=== PATIENT | female | born 1955 | race Caucasian/White ===

== ENCOUNTER 2020-11-27 07:31 | Day surgery (SDC) | payer MEDICARE, MEDICAID ==
[2020-11-19 14:29] LABS: BASOPHILS # (AUTO) 0.1 X10'3 (0-0.2); BASOPHILS % (AUTO) 1.1 % (0-1); EOSINOPHILS # (AUTO) 0.4 X10'3 (0-0.9); EOSINOPHILS % (AUTO) 6.1 % (0-6); LYMPHOCYTES # (AUTO) 1.8 X10'3 (1.1-4.8); LYMPHOCYTES % (AUTO) 30.3 % (21-51); MEAN CORPUSCULAR HEMOGLOBIN 28.1 PG (27.0-31.0); MEAN CORPUSCULAR HGB CONC 32.1 g/dL (33.0-36.5); MEAN CORPUSCULAR VOLUME 87.6 FL (78-98); MONOCYTES # (AUTO) 0.4 X10'3 (0-0.9); MONOCYTES % (AUTO) 7.6 % (2-12); NEUTROPHILS # (AUTO) 3.2 X10'3 (1.8-7.7); NEUTROPHILS % (AUTO) 54.9 % (42-75); PRE OP HEMATOCRIT 42.4 % (35.0-45.0); PRE OP HEMOGLOBIN 13.6 g/dL (12.0-16.0); PRE OP PLATELET COUNT 369 X10'3 (140-440); RED BLOOD COUNT 4.84 X10'6 (4.20-5.60); RED CELL DISTRIBUTION WIDTH 14.7 % (11.5-14.5)
[2020-11-19 14:51] LABS: ALBUMIN 3.6 G/DL (3.4-5.0); ALBUMIN/GLOBULIN RATIO 0.9 (1.1-1.5); ALKALINE PHOSPHATASE 95 IU/L (46-116); BLOOD UREA NITROGEN 35 MG/DL (7-18); BUN/CREATININE RATIO 23.6 (6.6-38.0); CALCIUM 9.1 MG/DL (8.5-10.1); CHLORIDE 108 MMOL/L (99-107); CREATININE 1.48 MG/DL (0.40-0.90); PRE OP ALT 21 U/L (30-65); PRE OP ANION GAP 12 (8-16); PRE OP AST 17 U/L (10-37); PRE OP BILIRUB, TOTAL 0.3 MG/DL (0.0-1.0); PRE OP GLUCOSE 100 MG/DL (70-104); PRE OP SODIUM 146 MMOL/L (135-145); TOTAL PROTEIN 7.6 G/DL (6.4-8.2); eGFR 36 ML/MIN
[2020-11-27] VITALS (13 sets, daily range): BP systolic 121–147; BP diastolic 68–83
[~2020-11-27] VITALS: Ht 167.6 cm; Wt 109.7 kg
[~2020-11-27 07:31] MED LIST: AMLO10TA13 PO; ASCO-134 PO; BACL10TA2 PO; BUPIVAcaine/PF 2.5mg/ml (0.25%) 10ml vial ONE; CHOL10006 PO; DICY10CA18 PO; DOCUMENT DATE & TIME OF BETA-BLOCKER PO ONE; FURO20TA4 PO; HYDR25TA4 PO; IRON15TA3 PO; LEVO50TA8 PO; LIRA0.6P2 SQ; MAGN300C PO; MELA10TA PO; METF-438 PO; METO100T14 PO; OMEP40CA21 PO; POTA20TA19 PO; PRAS25CA PO; VALS320T17 PO; cefazolin/dext.iso 2gm/100ml IV ONE; famotidine 20mg tablet PO ONE; ringers solution, lacted 1,000 ML IV SCH; triamcinolone acetonide 40mg/ml inj ONE; vancomycin 1,500 MG in NS 300ml IV soln IV ONE
[2020-11-27] MEDS ORDERED: sevoflurane 250ml liquid IH ONE (10:12)
[2020-11-27] MEDS ORDERED: midazolam 1 mg/ML 2ml injection ONE (10:23)
[2020-11-27] MEDS ORDERED: fentaNYL/PF 50MCG/1 ML 2ML syringe ONE (10:23)
[2020-11-27] MEDS ORDERED: ondansetron/PF 4mg/2ml inj ONE (10:30)
[2020-11-27] MEDS ORDERED: propofol inj 20 ML IV ONE (10:30)
[2020-11-27] MEDS ORDERED: LIDOcaine 2% (20mg/ml) 5ml vial ONE (10:30)
[2020-11-27] MEDS ORDERED: dexamethasone sod phosphate 4mg/ml inj. ONE (10:30)
[2020-11-27] MEDS ORDERED: meperidine/PF 25mg/ml syringe ONE (10:41)
[2020-11-27] MEDS ORDERED: meperidine/PF 25mg/ml syringe IV PRN ×3 (11:05)
[2020-11-27] MEDS ORDERED: ringers solution, lacted 1,000 ML IV SCH (11:05)
[2020-11-27] MEDS ORDERED: morphine 4 MG/ML inj SYRINge IV PRN (11:05)
[2020-11-27] MEDS ORDERED: morphine 2 MG/ML inj. syringe IV PRN (11:05)
[2020-11-27] MEDS ORDERED: ondansetron/PF 4mg/2ml inj IV PRN (11:05)
[2020-11-27] MEDS ORDERED: proCHLORperazine 10 MG/2 ml inj IV PRN (11:05)
[2020-11-27] MEDS ORDERED: acetaminophen 1,000mg/100ml IV 100 ML IV ONE (11:14)
--- NOTE | 2020-11-27 11:27 | NUR ---
Received from OR via [facility] , accompanied by Anesthesiologist VANDANA and report given by Anesthesiolgist. PATIENT WITH 20G PIV IN RIGHT UE RUNNING LR AT 100. BANDAGE TO LEFT KNEE IS CDI. NO DRAINAGE TO DRESSING. Addendum: 11/27/20 at 1133 by Kenroy Huddleston RN, RN Amended: Links added.
[2020-11-27] MEDS ORDERED: HYDROcodone/acetaminophen 10/325mg tab PO ONE (13:05)
--- NOTE | 2020-11-27 13:37 | NUR ---
ALL DC CRITERIA HAS BEEN MET. ALL INSTRUCTIONS GIVEN AND UNDERSTOOD. OUT VIA WHEELCHAIR AND TAKEN OUT TO PERSONAL VEHICLE WHERE FAMILY DROVE PATIENT HOME. Addendum: 11/27/20 at 1349 by Kenroy Huddleston RN, RN Amended: Links added.
== END 2020-11-27 13:37 | disposition home or self-care (01) ==
LOC: PAS 07:31
PROVIDERS: ATTEND Orthopaedic Surgery
DX: S83.242A Other tear of medial meniscus, current injury, left knee, initial encounter (principal); S83.272A Complex tear of lateral meniscus, current injury, left knee, initial encounter; M94.262 Chondromalacia, left knee; M17.12 Unilateral primary osteoarthritis, left knee; G89.4 Chronic pain syndrome; I10 Essential (primary) hypertension; K21.9 Gastro-esophageal reflux disease without esophagitis; E78.5 Hyperlipidemia, unspecified; E11.51 Type 2 diabetes mellitus with diabetic peripheral angiopathy without gangrene; M17.0 Bilateral primary osteoarthritis of knee; G47.30 Sleep apnea, unspecified; J45.909 Unspecified asthma, uncomplicated; E66.01 Morbid (severe) obesity due to excess calories; Z68.39 Body mass index [BMI] 39.0-39.9, adult; Z20.822 Contact with and (suspected) exposure to COVID-19; Z79.899 Other long term (current) drug therapy; Z79.4 Long term (current) use of insulin; Z98.41 Cataract extraction status, right eye; Z98.42 Cataract extraction status, left eye; Z72.89 Other problems related to lifestyle; Z98.890 Other specified postprocedural states; Z86.718 Personal history of other venous thrombosis and embolism; Z87.442 Personal history of urinary calculi; Z88.8 Allergy status to other drugs, medicaments and biological substances; Z80.9 Family history of malignant neoplasm, unspecified; X58.XXXA Exposure to other specified factors, initial encounter; Y93.89 Activity, other specified; Y92.89 Other specified places as the place of occurrence of the external cause; Y99.8 Other external cause status
CPT/HCPCS: 29873; 29879; 29880; 36415; 80053; 82948; 85025; J0131; J1100; J2001; J2175; J2250; J2270; J2405; J2704; J3010; J3301; J3370; J3490; J7040; U0003; U0005; Z7506; Z7508; Z7512; A4215; A4618; A6250; A6449; A7000; J7120

== ENCOUNTER 2021-10-27 05:36 | Inpatient (IN) | payer OTHER ==
[2021-10-21 14:59] LABS: BASOPHILS % (AUTO) 0.8 % (0-1); EOSINOPHILS # (AUTO) 0.3 X10'3 (0-0.9); EOSINOPHILS % (AUTO) 5.5 % (0-6); LYMPHOCYTES # (AUTO) 1.3 X10'3 (1.1-4.8); LYMPHOCYTES % (AUTO) 23.6 % (21-51); MEAN CORPUSCULAR HEMOGLOBIN 28.7 PG (27.0-31.0); MEAN CORPUSCULAR HGB CONC 32.8 g/dL (33.0-36.5); MEAN CORPUSCULAR VOLUME 87.3 FL (78-98); MEAN PLATELET VOLUME 7.9 FL (7.4-10.4); MONOCYTES # (AUTO) 0.3 X10'3 (0-0.9); MONOCYTES % (AUTO) 5.4 % (2-12); NEUTROPHILS # (AUTO) 3.5 X10'3 (1.8-7.7); NEUTROPHILS % (AUTO) 64.7 % (42-75); PRE OP HEMATOCRIT 42.1 % (35.0-45.0); PRE OP HEMOGLOBIN 13.8 g/dL (12.0-16.0); PRE OP PLATELET COUNT 307 X10'3 (140-440); RED BLOOD COUNT 4.82 X10'6 (4.20-5.60)
[2021-10-21 15:17] LABS: ALBUMIN 3.8 G/DL (3.4-5.0); ALBUMIN/GLOBULIN RATIO 0.9 (1.1-1.5); ALKALINE PHOSPHATASE 97 IU/L (46-116); BLOOD UREA NITROGEN 18 MG/DL (7-18); BUN/CREATININE RATIO 17.5 (6.6-38.0); CALCIUM 8.9 MG/DL (8.5-10.1); CHLORIDE 103 MMOL/L (99-107); CREATININE 1.03 MG/DL (0.40-0.90); PRE OP ALT 23 U/L (30-65); PRE OP ANION GAP 14 (8-16); PRE OP AST 13 U/L (10-37); PRE OP BILIRUB, TOTAL 0.2 MG/DL (0.0-1.0); PRE OP GLUCOSE 145 MG/DL (70-104); PRE OP POTASSIUM 3.9 MMOL/L (3.4-5.1); PRE OP SODIUM 143 MMOL/L (135-145); TOTAL CARBON DIOXIDE 25.9 MMOL/L (24-32); TOTAL PROTEIN 7.9 G/DL (6.4-8.2); eGFR 54 ML/MIN
[~2021-10-27] VITALS: Ht 170.2 cm; Wt 111.1 kg
[2021-10-27] VITALS (21 sets, daily range): BP systolic 107–152; BP diastolic 60–82
[~2021-10-27 05:36] MED LIST changes: -BUPIVAcaine/PF 2.5mg/ml (0.25%) 10ml vial ONE; +POTA-207 PO; -POTA20TA19 PO; +acetaminophen 325mg tablet PO ONE; +ceFAZolin inj. 2,000 MG in dextrose 5%-water 100 ML IV ONE; -cefazolin/dext.iso 2gm/100ml IV ONE; +celeCOXIB 100mg capsule PO ONE; +gabapentin 300mg capsule PO ONE; +metoclopramide 5 mg/ml inj IV ONE; +oxyCODONE SR 10mg (sust. release) tab -2 tabs (20mg) PO ONE; -ringers solution, lacted 1,000 ML IV SCH; +tranexamic acid inj. 1,000 MG in 0.7% saline 100 ML PMX IV ONE; -triamcinolone acetonide 40mg/ml inj ONE
--- NOTE | 2021-10-27 06:00 | NUR ---
TOTAL JOINT PREOP CHARTING: PT DID NOT RECEIVE THE OINTMENT FROM DR YOUNG. PT DID COMPLETE HIBICLENS SHOWERS DAILY X5 PREOP. DID NOT WATCH THE TOTAL JOINT DVD-"DIDN'T HAVE A CHANCE", DID READ THE TOTAL JOINT KNEE BOOKLET. [facility] -[facility]OUS[facility]. RIGHT DORSALIS PEDIS PULSE POSITIVE WITH USE OF DOPPLER AND MARKED.
[2021-10-27] MEDS: ringers solution, lacted 1,000 ML IV SCH ×2 (06:26→12:41)
[2021-10-27] MEDS ORDERED: vancomycin 1,000mg inj ONE (06:46)
[2021-10-27] MEDS ORDERED: ROPIVAcaine 0.5% (5mg/ml) 30ml vial ONE ×2 (06:46→09:46)
[2021-10-27] MEDS ORDERED: ketorolac trometh. 30mg/ml inj. ONE (06:46)
[2021-10-27] MEDS ORDERED: epiNEPHrine 1 mg/ml 30ml MDV ONE (06:46)
[2021-10-27] MEDS ORDERED: cloNIDine hcl/PF 100mcg/ml inj ONE (06:46)
[2021-10-27] MEDS ORDERED: epiNEPHrine 1 mg/ml inj ONE (06:47)
[2021-10-27] MEDS ORDERED: acetaminophen 325mg tablet PO PRN (06:50)
[2021-10-27] MEDS ORDERED: MESSAGE TO PHARMACY PO ONE (06:50)
[2021-10-27] MEDS ORDERED: insulin Lispro (HumaLOG) vial - multi-dose SQ SCH (06:50)
[2021-10-27] MEDS ORDERED: bisacodyl 10mg suppository rectal RC PRN (06:50)
[2021-10-27] MEDS ORDERED: diphenhydrAMINE 25mg capsule PO PRN ×2 (06:50)
[2021-10-27] MEDS ORDERED: glucagon, human recombinant 1mg kit SUBCUT PRN (06:50)
[2021-10-27] MEDS ORDERED: HYDROmorphone 1 mg/ml syringe IV PRN (06:50)
[2021-10-27] MEDS ORDERED: DEXTROSE 15 GM of carb/4 tabs (each vial/BOTTLE has 4 tablets) PO PRN ×2 (06:50)
[2021-10-27] MEDS ORDERED: naloxone 0.4 mg/ml inj IV PRN (06:50)
[2021-10-27] MEDS ORDERED: magnesium hydroxide 30ml (MOM) UD suspension PO PRN (06:50)
[2021-10-27] MEDS ORDERED: HYDROmorphone inj. 0.5 MG/0.5 ML DISP.SYRIN IV PRN (06:50)
[2021-10-27] MEDS ORDERED: ondansetron/PF 4mg/2ml inj IV PRN ×2 (06:50→09:30)
[2021-10-27] MEDS ORDERED: oxyCODONE/APAP 10/325mg tablet PO PRN (06:50)
[2021-10-27] MEDS ORDERED: dextrose 50%-water 50ml dispensing syringe IV PRN ×2 (06:50)
[2021-10-27] MEDS ORDERED: baclofen 10mg tablet PO SCH (08:00)
[2021-10-27] MEDS ORDERED: potassium Cl 20 mEq SR tablet PO SCH (08:00)
[2021-10-27] MEDS ORDERED: multivitamins, therapeutics tablet PO SCH (08:00)
[2021-10-27] MEDS ORDERED: HYDROchlorothiazide 25mg tablet PO SCH (08:00)
[2021-10-27] MEDS ORDERED: levoTHYROXINE 25mcg tablet PO SCH (08:00)
[2021-10-27] MEDS ORDERED: pantoprazole 40mg Tablet.DR PO SCH (08:00)
[2021-10-27] MEDS ORDERED: amLODIPine 5mg tablet PO SCH (08:00)
[2021-10-27] MEDS ORDERED: magnesium oxide 400mg tablet PO SCH (08:00)
[2021-10-27] MEDS ORDERED: losartan 50mg tablet PO SCH (08:00)
[2021-10-27] MEDS ORDERED: ascorbic acid 500mg tablet PO SCH (08:00)
[2021-10-27] MEDS ORDERED: metoprolol tartrate 50mg tablet PO SCH (08:00)
[2021-10-27] MEDS ORDERED: gabapentin 300mg capsule PO SCH (08:00)
[2021-10-27] MEDS ORDERED: dicyclomine 10 MG capsule PO SCH (08:00)
[2021-10-27] MEDS ORDERED: furosemide 20MG tablet PO SCH (08:00)
[2021-10-27] MEDS ORDERED: aspirin 325mg tablet PO SCH (08:30)
[2021-10-27] MEDS ORDERED: fentaNYL/PF 50MCG/1 ML 2ML syringe ONE ×2 (08:43→09:10)
[2021-10-27] MEDS ORDERED: MIDAZolam 1 MG/ML 5ML VIAL ONE (08:44)
[2021-10-27] MEDS ORDERED: ROPIVAcaine 0.2%/PF PUMP/bolus 545 ML ADDCANAL SCH (09:30)
[2021-10-27] MEDS ORDERED: ROPIVAcaine 0.2% (10 MG/5 ML) BOLUS INJECTION ADDCANAL PRN (09:30)
[2021-10-27] MEDS ORDERED: morphine 4 MG/ML inj SYRINge IV PRN (09:30)
[2021-10-27] MEDS ORDERED: proCHLORperazine 10 MG/2 ml inj IV PRN (09:30)
[2021-10-27] MEDS ORDERED: meperidine/PF 25mg/ml syringe IV PRN ×3 (09:30)
[2021-10-27] MEDS ORDERED: morphine 2 MG/ML inj. syringe IV PRN (09:30)
[2021-10-27] MEDS ORDERED: ringers solution, lacted 1,000 ML IV SCH (09:30)
[2021-10-27] MEDS ORDERED: ROPIVAcaine 0.5% (5mg/ml) 30ml vial IJ ONE (09:38)
[2021-10-27] MEDS ORDERED: epiNEPHrine 1 MG/ML 1 ml ampule **BRONCH ONLY IJ ONE (09:39)
[2021-10-27] MEDS ORDERED: cloNIDine hcl/PF 100mcg/ml inj IJ ONE (09:39)
[2021-10-27] MEDS ORDERED: neostigmine methylsulfate 1 MG/ML 10ml vial ONE (09:47)
[2021-10-27] MEDS ORDERED: glycopyrrolate 0.2mg/ml inj ONE (09:47)
[2021-10-27] MEDS ORDERED: rocuronium 10mg/ml inj IV ONE (09:47)
[2021-10-27] MEDS ORDERED: propofol inj 20 ML IV ONE (09:47)
[2021-10-27] MEDS ORDERED: LIDOcaine 1%/PF 5ML 10 MG/ML VIAL ONE (09:47)
[2021-10-27] MEDS ORDERED: dexamethasone sod phosphate 4mg/ml inj. ONE (09:47)
[2021-10-27] MEDS ORDERED: ondansetron/PF 4mg/2ml inj ONE (09:47)
--- NOTE | 2021-10-27 10:24 | NUR ---
Received from OR via BED IN STABLE CONDITION , accompanied by Anesthesiologist and PROTOTYPE MODEL MAKER report given by PROTOTYPE MODEL MAKER AND Anesthesiolgist. Addendum: 10/27/21 at 1120 by Erika Mo RN Amended: Links added.
[2021-10-27] MEDS ORDERED: sugammadex 200mg/2ml injection IV ONE (10:27)
[2021-10-27] MEDS: oxyCODONE/APAP 10/325mg tablet PO PRN (11:49)
--- NOTE | 2021-10-27 12:04 | NUR ---
PATIENT DISCHARGED FROM PACU IN STABLE CONDITION AFTER REPORT GIVEN TO RN TAKING OVER PATIENTS CARE. PATIENT TRANSFERRED TO ROOM 402 VIA BED WITH RN X2. Addendum: 10/27/21 at 1234 by Erika Mo RN Amended: Links added.
[2021-10-27] MEDS: potassium cl 20mEq in 1/2 NS 1,000 ML IV SCH ×3 (12:41→21:13)
--- NOTE | 2021-10-27 12:51 | NUR ---
Report taken on this patient and I will give report to Erica POWER who will be primary RN. Pt came to floor and is doing well, some complaints of pain but nothing else at this time.
--- NOTE | 2021-10-27 12:57 | NUR ---
RECEIVED REPORT FROM JANNET BUSTILLOS
[2021-10-27] MEDS: gabapentin 300mg capsule PO SCH ×2 (13:01→20:55)
[2021-10-27] MEDS: dicyclomine 10 MG capsule PO SCH ×2 (13:01→20:54)
[2021-10-27] MEDS ORDERED: tranexamic acid inj. 1,100 MG in normal saline 100ml IV soln 89 ML IV ONE (13:24)
[2021-10-27] MEDS: cefazolin/dext.iso 2gm/100ml 100 ML IV SCH (16:01)
--- NOTE | 2021-10-27 18:33 | NUR ---
gave report to june,
[2021-10-27] MEDS ORDERED: VANCOMYCIN 1,500MG inj. 1,500 MG in dextrose 5% water 500ml 300 ML IV ONE (20:00)
[2021-10-27] MEDS: ascorbic acid 500mg tablet PO SCH (20:53)
[2021-10-27] MEDS: baclofen 10mg tablet PO SCH (20:55)
[2021-10-27] MEDS ORDERED: insulin glargine (Lantus) pen - multi-dose SQ SCH (21:00)
[2021-10-27] MEDS ORDERED: sennosides 8.6mg tablet PO SCH (21:00)
[2021-10-27] MEDS: metoprolol tartrate 50mg tablet PO SCH (22:15)
--- NOTE | 2021-10-27 23:02 | NUR ---
Student documentation: I have reviewed interventions, assessments performed and documented by Mary SWEENEY [facility] .
[2021-10-28] MEDS: cefazolin/dext.iso 2gm/100ml 100 ML IV SCH (00:55)
[2021-10-28 02:00] VITALS: BP 105/57
[2021-10-28] MEDS: oxyCODONE/APAP 10/325mg tablet PO PRN ×2 (05:09→10:33)
[2021-10-28 06:00] VITALS: BP 127/98
[2021-10-28 06:36] LABS: BASOPHILS % (AUTO) 0.1 % (0-1); EOSINOPHILS % (AUTO) 0 % (0-6); HEMATOCRIT 36.5 % (35.0-45.0); MEAN CORPUSCULAR HEMOGLOBIN 28.5 PG (27.0-31.0); MEAN CORPUSCULAR HGB CONC 32.8 g/dL (33.0-36.5); MEAN CORPUSCULAR VOLUME 87.1 FL (78-98); MEAN PLATELET VOLUME 7.6 FL (7.4-10.4); MONOCYTES # (AUTO) 0.7 X10'3 (0-0.9); MONOCYTES % (AUTO) 6.1 % (2-12); NEUTROPHILS # (AUTO) 9.8 X10'3 (1.8-7.7); NEUTROPHILS % (AUTO) 84.8 % (42-75); PLATELET COUNT 312 X10'3 (140-440); RED BLOOD COUNT 4.19 X10'6 (4.20-5.60); RED CELL DISTRIBUTION WIDTH 13.8 % (11.5-14.5); WHITE BLOOD COUNT 11.6 X10'3 (4.5-11.0)
[2021-10-28 06:47] LABS: ANION GAP 10 (8-16); CHLORIDE 104 MMOL/L (99-107); POTASSIUM 4.2 MMOL/L (3.5-5.1); SODIUM 140 MMOL/L (135-145); TOTAL CARBON DIOXIDE 25.8 MMOL/L (24-32)
[2021-10-28] MEDS: potassium cl 20mEq in 1/2 NS 1,000 ML IV SCH (06:50)
[2021-10-28] MEDS ORDERED: multivitamins, therapeutics tablet PO SCH (08:00)
[2021-10-28] MEDS ORDERED: magnesium oxide 400mg tablet PO SCH (08:00)
[2021-10-28] MEDS ORDERED: HYDROchlorothiazide 25mg tablet PO SCH (08:00)
[2021-10-28] MEDS ORDERED: pantoprazole 40mg Tablet.DR PO SCH (08:00)
[2021-10-28] MEDS ORDERED: losartan 50mg tablet PO SCH (08:00)
[2021-10-28] MEDS ORDERED: potassium Cl 20 mEq SR tablet PO SCH (08:00)
[2021-10-28] MEDS ORDERED: amLODIPine 5mg tablet PO SCH (08:00)
[2021-10-28] MEDS ORDERED: levoTHYROXINE 25mcg tablet PO SCH (08:00)
[2021-10-28] MEDS ORDERED: furosemide 20MG tablet PO SCH (08:00)
[2021-10-28] MEDS ORDERED: aspirin 325mg tablet PO SCH (08:30)
[2021-10-28] MEDS: metoprolol tartrate 50mg tablet PO SCH (10:00)
[2021-10-28] MEDS: dicyclomine 10 MG capsule PO SCH ×2 (10:07→15:07)
[2021-10-28] MEDS: baclofen 10mg tablet PO SCH (10:08)
[2021-10-28] MEDS: gabapentin 300mg capsule PO SCH ×2 (10:08→15:09)
[2021-10-28] MEDS: ascorbic acid 500mg tablet PO SCH (10:09)
[2021-10-28 10:40] VITALS: BP_SYST 108
--- NOTE | 2021-10-28 12:30 | NUR ---
Joint Surgery Consult: Pt s/p R knee surgery this admit hx T2DM A1C 6.2% per EMR. Pt/family seen by RD at bedside for written/verbal high protein diet ed w/ RD contact information provided. BEBA encouraged pt/family to contact dietitian's office if further questions/concerns. Addendum: 10/28/21 at [address] Amended: Links added.
[2021-10-28] MEDS ORDERED: celeCOXIB 100mg capsule PO SCH (20:00)
== END 2021-10-28 15:25 | disposition home or self-care (01) | DRG 470 ==
LOC: PAS 05:36 → ORTHO 4S 06:53
PROVIDERS: ADMIT Orthopaedic Surgery; ATTEND Orthopaedic Surgery
PROC: 0SRC0J9 Replacement of Right Knee Joint with Synthetic Substitute, Cemented, Open Approach (ICD-10-PCS; principal; 2021-10-27 08:24)
DX: M17.11 Unilateral primary osteoarthritis, right knee (principal); Z79.899 Other long term (current) drug therapy
CPT/HCPCS: 36415; 73560; 80051; 80053; 82948; 83036; 84443; 85025; 86885; 86900; 86901; 87081; 87811; 97110; 97116; 97162; 97530; A4615; G0378; J0171; J0690; J0735; J1100; J1815; J1885; J2175; J2250; J2405; J2704; J2710; J2765; J2795; J3010; J3370; J3480; J3490; J7040; J7060; J7120